=== PATIENT | female | born 1925 | race Caucasian/White ===

== ENCOUNTER 2017-02-19 10:25 | Emergency (ER) | payer MEDICARE, BC ==
[~2017-02-19] VITALS: Ht 160 cm; Wt 73.0 kg
[2017-02-19 10:30] VITALS: BP 169/77; PULSE 83; RESP 16; TEMP 97.7; O2SAT 97
[2017-02-19] MEDS ORDERED: ?BP MED (10:57)
[2017-02-19] MEDS ORDERED: OMEP20TA93 PO (10:57)
--- NOTE | 2017-02-19 11:25 | PD ---
HPI Chief Complaint: Fall Time Seen by Provider: 11:21 Travel History International Travel<30 days: No Contact w/Intl Traveler<30days: No Traveled to known affect area: No History of Present Illness HPI 89-year-old female with history of right leg DVT and cellulitis here for evaluation of right lower extremity redness and swelling 1 week. She reports she had a mechanical fall approximately a week ago causing 2 large abrasions to the anterior bautista. The areas have become increasingly more red and swollen. She reports the redness and swelling was actually present prior to the fall. She denies fever or chills. She is currently not anticoagulated. She stopped taking her anticoagulant approximately 3 months ago after she watched a commercial stating her anticoagulant could cause severe bleeding. Her Primary care provider is Vonnie Martinez. PFSH Past Medical History Hx Anticoagulant Therapy: No (quick blood thinner 3 months ago) Arthritis: Yes Cardiovascular Problems: Yes (htn on meds) Diminished Hearing: No Deep Vein Thrombosis: Yes (right leg) GERD: Yes Hypertension: Yes Medical other: Yes (hx of edema in legs) Tetanus Vaccination: Unknown Influenza Vaccination: No ?: Not Past Surgical History Appendectomy: Yes Cholecystectomy: Yes Eye Surgery: Yes (cataract surgery both eyes, right eye repair for macular degeneration) Social History Alcohol Use: No Tobacco Use: No Substance Use: No Allergies-Medications (Allergen,Severity, Reaction): Coded Allergies: penicillin G (Verified Allergy, Severe, swelling, 02/19/17) Reported Meds & Prescriptions Reported Meds & Active Scripts Active Keflex (Cephalexin) 500 Mg Capsule 500 Mg PO Q6H 7 Days Bactrim DS (Sulfamethoxazole-Trimethoprim) 800-160 Mg Tab 1 Tab PO BID Eliquis (Apixaban) 5 Mg Tab 10 Mg PO BID Reported Omeprazole 20 Mg Tab 20 Mg PO DAILY [?Bp Med] Review of Systems Except as stated in HPI: all other systems reviewed are Neg General / Constitutional: No: Fever Eyes: No: Visual changes Physical Exam Narrative GENERAL: Alert, well-appearing elderly female SKIN: Focused skin assessment: 2 large abrasions to the right anterior bautista with surrounding erythema to the entirety of the right bautista. HEAD: Normocephalic. Atraumatic EYES: No scleral icterus. No injection or drainage. NECK: Supple, trachea midline. No JVD or lymphadenopathy. CARDIOVASCULAR: Regular rate and rhythm without murmurs, gallops, or rubs. RESPIRATORY: Breath sounds equal bilaterally. No accessory muscle use. GASTROINTESTINAL: Abdomen soft, non-tender, nondistended. MUSCULOSKELETAL: No cyanosis. There is no swelling, 1+ pitting edema and erythema to the right anterior bautista. 2 large abrasions with surrounding erythema. 2+ dorsal pedis pulse. BACK: Nontender without obvious deformity. No CVA tenderness. Data Data Last Documented VS Vital Signs Date Time Temp Pulse Resp B/P (MAP) Pulse Ox O2 Delivery O2 Flow Rate FiO2 02/19/17 12:45 78 16 159/76 (103) 97 02/19/17 10:30 97.7 Orders Orders Us Leg Venous Doppler (02/19/17 11:17) Basic Metabolic Panel (Bmp) (02/19/17 11:17) Complete Blood Count With Diff (02/19/17 11:17) Iv Access Insert/Monitor (02/19/17 11:17) Prothrombin Time / Inr (Pt) (02/19/17 11:17) Act Partial Throm Time (Ptt) (02/19/17 11:17) Lactic Acid (02/19/17 11:26) Ed Discharge Order (02/19/17 12:43) Labs Laboratory Tests Test 02/19/17 11:30 White Blood Count 5.1 TH/MM3 Red Blood Count 3.79 MIL/MM3 Hemoglobin 11.1 GM/DL Hematocrit 33.2 % Mean Corpuscular Volume 87.7 FL Mean Corpuscular Hemoglobin 29.2 PG Mean Corpuscular Hemoglobin Concent 33.3 % Red Cell Distribution Width 12.9 % Platelet Count 229 TH/MM3 Mean Platelet Volume 9.0 FL Neutrophils (%) (Auto) 75.2 % Lymphocytes (%) (Auto) 8.5 % Monocytes (%) (Auto) 11.7 % Eosinophils (%) (Auto) 1.4 % Basophils (%) (Auto) 3.2 % Neutrophils # (Auto) 3.8 TH/MM3 Lymphocytes # (Auto) 0.4 TH/MM3 Monocytes # (Auto) 0.6 TH/MM3 Eosinophils # (Auto) 0.1 TH/MM3 Basophils # (Auto) 0.2 TH/MM3 CBC Comment DIFF FINAL Differential Comment Prothrombin Time 10.7 SEC Prothromb Time International Ratio 1.1 RATIO Activated Partial Thromboplast Time 19.2 SEC Blood Urea Nitrogen 10 MG/DL Creatinine 0.79 MG/DL Random Glucose 112 MG/DL Calcium Level 9.1 MG/DL Sodium Level 140 MEQ/L Potassium Level 4.0 MEQ/L Chloride Level 106 MEQ/L Carbon Dioxide Level 25.2 MEQ/L Anion Gap 9 MEQ/L Estimat Glomerular Filtration Rate 69 ML/MIN Lactic Acid Level 0.9 mmol/L MDM Medical Decision Making Medical Screen Exam Complete: Yes Emergency Medical Condition: Yes Differential Diagnosis DVT, cellulitis, wound infection Narrative Course 89-year-old female with a history of right leg DVT and cellulitis here for evaluation erythema and edema to the right lower extremity. Patient stopped taking her anticoagulants approximately 3 months ago after watching a commercial discussing side effects of anticoagulants. She is well-appearing. Her vital signs are stable. She denies fever or chills. She does have what appears to be an extensive cellulitis to the right bautista. Given her history of DVT and anticoagulant noncompliance ULTRASOUND OF THE LEG. CBC, BMP, COAGS, LACTIC ACID ORDERED AND PENDING. Ultrasound of the lower extremity show right femoral vein DVT with features suggesting some degree of chronicity CBC: No Leukocytosis Lactic: 0.9 The patient be restarted on Eliquis for DVT. She will also be put on Keflex and Bactrim for cellulitis. She is to follow-up with her primary doctor Vonnie Martinez this week. Diagnosis Primary Impression: DVT (deep venous thrombosis) Qualified Codes: I82.411 - Acute embolism and thrombosis of right femoral vein Additional Impression: Cellulitis Qualified Codes: L03.90 - Cellulitis, unspecified Referrals: Vonnie Martinez Additional Instructions: To restart the ELIQUIS 10 mg by mouth twice a day for 7 days Keflex and Bactrim to treat your cellulitis Follow-up with your primary doctor his week for recheck Scripts Apixaban (Eliquis) 5 Mg Tab 10 MG PO BID for Blood Clot Prevention for 7 Days, #28 TAB 0 Refills Prov: Rachele Bach 02/19/17 Cephalexin (Keflex) 500 Mg Capsule 500 MG PO Q6H for Infection for 7 Days, #28 CAP 0 Refills Prov: Rachele Bach 02/19/17 Sulfamethoxazole-Trimethoprim (Bactrim DS) 800-160 Mg Tab 1 TAB PO BID for Infection, #14 TAB 0 Refills Prov: Rachele Bach 02/19/17 Disposition: 01 DISCHARGE HOME Condition: Stable Rachele Bach Feb 19, 2017 11:25
[2017-02-19 11:40] LABS: AUTOMATED NEUTROPHIL # 3.8 TH/MM3 (1.8-7.7); BASOPHIL # 0.2 TH/MM3 (0-0.2); BASOPHIL % 3.2 % (0.0-2.0); EOSINOPHIL # 0.1 TH/MM3 (0-0.4); EOSINOPHIL % 1.4 % (0.0-4.0); HEMATOCRIT 33.2 % (35.0-46.0); HEMOGLOBIN 11.1 GM/DL (11.6-15.3); LYMPH % 8.5 % (9.0-44.0); LYMPHOCYTE # 0.4 TH/MM3 (1.0-4.8); MEAN CELL VOLUME 87.7 FL (80.0-100.0); MEAN CORPUSCULAR HEMOGLOBIN 29.2 PG (27.0-34.0); MEAN CORPUSCULAR HGB CONC 33.3 % (32.0-36.0); MONO % 11.7 % (0.0-8.0); MONOCYTE # 0.6 TH/MM3 (0-0.9); NEUT % 75.2 % (16.0-70.0); PLATELET COUNT 229 TH/MM3 (150-450); RED BLOOD COUNT 3.79 MIL/MM3 (4.00-5.30); RED CELL DISTRIBUTION WIDTH 12.9 % (11.6-17.2); WHITE BLOOD COUNT 5.1 TH/MM3 (4.0-11.0)
[2017-02-19 11:53] LABS: BICARBONATE 25.2 MEQ/L (21.0-32.0)
[2017-02-19 11:54] LABS: CALCIUM 9.1 MG/DL (8.5-10.1)
[2017-02-19 11:59] LABS: CREATININE 0.79 MG/DL (0.50-1.00)
[2017-02-19 12:01] LABS: INTERNATIONAL NORMALIZED RATIO 1.1 RATIO; PROTHROMBIN TIME - PATIENT 10.7 SEC (9.8-11.6)
--- NOTE | 2017-02-19 12:11 | RADRPT ---
EXAM DATE/TIME: 02/19/2017 11:49 [facility] COMPARISON: No previous studies available for comparison. INDICATIONS : Right leg swelling. MEDICAL HISTORY : Hypertension. Deep venous thrombosis. Gastroesophageal reflux disease. Arthritis. SURGICAL HISTORY : Cholecystectomy. Appendectomy. Cataract removal. ENCOUNTER: Initial ACUITY: 1 day PAIN SCORE: 6/10 LOCATION: Right leg. TECHNIQUE: Venous ultrasound of the leg was performed from the inguinal ligament to the proximal calf. Real-leona e, color Doppler and spectral tracing, compression and augmentation techniques were used. FINDINGS: The central femoral vein is partially compressible with echogenic thrombus noted. There is normal com pressibility of the remaining deep venous system from the inguinal region to the proximal calf. No e chogenic clot is seen in the lumen of the common femoral, popliteal, and posterior tibial veins. The re is a normal response of the venous system to proximal and distal augmentation and respiration. CONCLUSION: 1. Proximal right femoral vein DVT with features suggesting some degree of chronicity. Steven Harding MD on February 19, 2017 at 12:06 Board Certified Radiologist. This report was verified electronically.
[2017-02-19] MEDS ORDERED: APIX5TAB PO ×2 (12:36→12:48)
[2017-02-19] MEDS ORDERED: CEPH-460 PO (12:37)
[2017-02-19] MEDS ORDERED: BACT800T5 PO (12:37)
[2017-02-19 12:45] VITALS: BP 159/76
== END 2017-02-19 13:07 | disposition home or self-care (01) ==
LOC: PHEFT 10:25
DX: I82.411 Acute embolism and thrombosis of right femoral vein (principal); L03.115 Cellulitis of right lower limb; M19.90 Unspecified osteoarthritis, unspecified site; I10 Essential (primary) hypertension; K21.9 Gastro-esophageal reflux disease without esophagitis; Z88.0 Allergy status to penicillin; Z79.899 Other long term (current) drug therapy
CPT/HCPCS: 80048; 83605; 85025; 85610; 85730; 93971